=== PATIENT | female | born 1930 | race Caucasian/White ===

== ENCOUNTER → 2018-11-17 | Outpatient (CLI) | payer MEDICARE, MEDICAID ==
--- NOTE | 2018-11-17 12:36 | Diagnostic Imaging Report ---
INDICATION: Status post fall with left foot pain and swelling. AP, oblique, and lateral views of the left foot are obtained. FINDINGS: There is diffuse osteopenia. No fracture or acute bony abnormality is seen. There are chronic changes in the interphalangeal joints. IMPRESSION: Diffuse osteopenia with no acute fracture visualized. Dictated by: Dictated on workstation # [id number]
== END ==
LOC: RAD FS 11:53
PROVIDERS: ATTEND Family Medicine
DX: M85.872 Other specified disorders of bone density and structure, left ankle and foot (principal); M79.89 Other specified soft tissue disorders; Z91.81 History of falling
CPT/HCPCS: 73630